=== PATIENT | male | born 1975 | race Caucasian/White ===

== ENCOUNTER 2022-04-06 23:22 | Emergency (ER) | payer OTHER ==
[~2022-04-06] VITALS: Ht 170.2 cm; Wt 77.1 kg
--- NOTE | 2022-04-06 23:40 | NUR ---
Patient to ER bed 5 to gown for evaluation. Side rails up. Report given to Rylie ORANTES.
[2022-04-06 23:44] VITALS: BP_SYST 156
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
--- NOTE | 2022-04-06 23:55 | NUR ---
ANNABEL Guzman at bedside examining patient.
[2022-04-07] MEDS ORDERED: BACITRACIN 1 GM OINT TP ONE
--- NOTE | 2022-04-07 00:20 | NUR ---
Benson rodriguez in ED - 04/07/22 at 0030 by SDEDPR Incident reported to Rashid BURGESS.Spoke to dispatch #[id number].
--- NOTE | 2022-04-07 00:20 | NUR ---
Incident reported to Nasrin BURGESS.Spoke to dispatch #[id number]. Incident # [id number] Per Nasrin BURGESS ,AIMEE harding will come to see the pt in the ER.
--- NOTE | 2022-04-07 00:38 | NUR ---
HELGA [facility]MAN[facility]S AT BEDSIDE Addendum: 04/07/22 at 0225 by [email or web address] REPORT #[id number]
[2022-04-07] MEDS ORDERED: DIPHTH,PERTUSS(ACELL),TET VAC 0.5 ML VIAL (Tdap) I.M. ONE (00:45)
[2022-04-07] MEDS ORDERED: IBUP-1969 PO (00:57)
[2022-04-07 01:04] VITALS: BP_SYST 132
--- NOTE | 2022-04-07 01:04 | NUR ---
Patient given written and verbal discharge instructions and verbalizes understanding. ER MD discussed with patient the results and treatment provided. Patient in stable condition. ID arm band removed. Rx of IBUPROFEN given. Patient educated on pain management and to follow up with PMD. Pain Scale 0/10 Opportunity for questions provided and answered. Medication side effect fact sheet provided.
== END 2022-04-07 01:04 | disposition home or self-care (01) ==
LOC: SED 23:22
DX: S01.01XA Laceration without foreign body of scalp, initial encounter (principal); Z79.899 Other long term (current) drug therapy; Y04.8XXA Assault by other bodily force, initial encounter; Y93.89 Activity, other specified; Y92.89 Other specified places as the place of occurrence of the external cause; Y99.8 Other external cause status
CPT/HCPCS: 70450-TC; 76376; 99284

== ENCOUNTER 2022-04-14 08:21 | Emergency (ER) | payer OTHER ==
[~2022-04-14] VITALS: Ht 177.8 cm; Wt 79.4 kg
[~2022-04-14 08:21] MED LIST: IBUP-1969 PO
--- NOTE | 2022-04-14 09:00 | NUR ---
Patient to ER bed HALLWAY 1 to gown for evaluation. Side rails up.
--- NOTE | 2022-04-14 09:05 | NUR ---
ER at bedside examining patient.
[2022-04-14 09:15] VITALS: BP_SYST 144
--- NOTE | 2022-04-14 09:15 | NUR ---
SUTURES REMOVED.PT TOLERATED WELL. WOUND DRESSED.
[2022-04-14] MEDS ORDERED: BACITRACIN 1 GM OINT TP ONE (09:30)
--- NOTE | 2022-04-14 09:58 | NUR ---
Patient given written and verbal discharge instructions and verbalizes understanding. ER MD discussed with patient the results and treatment provided. Patient in stable condition. ID arm band removed. NO Rx given. Patient educated on pain management and to follow up with PMD. Pain Scale 0. Opportunity for questions provided and answered. Medication side effect fact sheet provided.
== END 2022-04-14 09:58 | disposition home or self-care (01) ==
LOC: SED 08:21
DX: S01.01XD Laceration without foreign body of scalp, subsequent encounter (principal); Z48.02 Encounter for removal of sutures; Y04.0XXD Assault by unarmed brawl or fight, subsequent encounter
CPT/HCPCS: 99281